=== PATIENT | female | born 1990 | race African-American/Black ===

== ENCOUNTER 2017-01-03 14:37 | Inpatient (IN) ==
[2017-01-03] MEDS ORDERED: ONDANSETRON 4 MG/2 ML VIAL IV PRN (15:01)
[2017-01-03] MEDS ORDERED: FAMOTIDINE 20 MG/2 ML VIAL IV ONE (15:03)
[2017-01-03] MEDS ORDERED: hydrOXYzine HCL 25 MG/1 ML VIAL IM PRN (15:03)
[2017-01-03] MEDS ORDERED: LACTATED RINGERS 1,000 ML IV ONE (15:03)
[2017-01-03] MEDS ORDERED: fentaNYL 2 MCG/ROPIV 0.2% EPID 150 ML EPIDURAL SCH (15:03)
[2017-01-03] MEDS ORDERED: diphenhydrAMINE 50 MG/1 ML VIAL IV PRN ×2 (15:03)
[2017-01-03] MEDS ORDERED: ONDANSETRON 4 MG/2 ML VIAL IV ONE (15:03)
[2017-01-03] MEDS ORDERED: ePHEDrine 50 MG/ML AMP IV PRN (15:03)
[2017-01-03] MEDS ORDERED: CITRIC ACID/SODIUM CITRATE 30 ML UDCUP PO ONE (15:03)
[2017-01-03] MEDS ORDERED: PROMETHAZINE 25 MG/1 ML VIAL IM ONE (15:03)
[2017-01-03] MEDS ORDERED: AMPICILLIN INJ 2,000 MG in SODIUM CHLORIDE 0.9% 100 ML IV ONE (15:08)
[2017-01-03] MEDS: LACTATED RINGERS 1,000 ML IV SCH ×2 (15:33→23:30)
[2017-01-03 15:45] LABS: Basophils % 0.1 % (0.0-0.8); Eosinophils # 0.1 10*3/uL (0.0-0.87); Hematocrit 32.6 VOL% (35.7-47.0); Hemoglobin 10.9 GM/DL (12.0-16.0); Immature Granulocytes % 0.7 %; Immature Granulocytes Absolute 0.08 #; Lymphocytes # 1.8 10*3/uL (1.4-4.0); Lymphocytes % 14.3 % (21.3-54.2); Mean Corpuscular HGB Conc 33.4 GM/DL (32-36); Mean Corpuscular Hemoglobin 32 PG (27-34); Mean Corpuscular Volume 94.2 FL (87-102); Mean Platelet Volume 10.8 FL (9.6-12.0); Monocytes # 1.2 10*3/uL (0.11-0.8); Monocytes % 9.9 % (1.7-12.7); Neutrophils # 9.1 10*3/uL (1.4-7.4); Platelet Count 330 T/CUMM (130-400); Red Blood Count 3.46 MC/CUMM (3.8-5.5); Red Cell Distribution Width 13.6 % (9.3-17.3); White Blood Count 12.2 T/CUMM (4-12)
[2017-01-03 16:15] LABS: Albumin 3.4 G/DL (3.4-5.0); Bilirubin,Total 0.6 MG/DL (0.2-1.0); Calcium 9.2 MG/DL (8.5-10.1); Osmolality,Calculated 269.8 MOS/KG (273-304); Total Protein 7.4 G/DL (6.4-8.3); Uric Acid 4.9 MG/DL (2.6-6.0)
[2017-01-03] MEDS: AMPICILLIN INJ 1,000 MG in SODIUM CHLORIDE 0.9% 100 ML IV SCH ×2 (19:15→23:55)
[2017-01-04] MEDS: BUTORPHANOL 2 MG/ML VIAL IV PRN ×2 (00:05→03:30)
[2017-01-04] MEDS: AMPICILLIN INJ 1,000 MG in SODIUM CHLORIDE 0.9% 100 ML IV SCH ×4 (03:30→21:38)
[2017-01-04] MEDS: OXYTOCIN/LR 20 UNIT/1,000 ML BAG IV SCH (07:36)
[2017-01-04] MEDS ORDERED: ePHEDrine 50 MG/ML AMP ONE (07:40)
[2017-01-04] MEDS ORDERED: FAMOTIDINE 20 MG/2 ML VIAL IV ONE (08:00)
[2017-01-04] MEDS ORDERED: CITRIC ACID/SODIUM CITRATE 30 ML UDCUP PO ONE (08:00)
--- NOTE | 2017-01-04 08:28 | OB/GYN History & Physical ---
History of Present Illness Chief complaint: contractions History of present illness: Ms. Shaw is a 26 year old female Was seen in the office yesterday with complaints of painful uterine contractions. Patient was found to be 6 cm dilated with palpable uterine contractions therefore she was sent to labor and delivery for labor Home Medications Medication Instructions Recorded Confirmed Type Pnv No.95/Ferrous Fum/Folic AC 1 tablet PO DAILY 01/03/17 01/03/17 History [ Tablet] Allergies Allergy/AdvReac Type Severity Reaction Status Date / Time No Known Allergies Allergy Verified 01/03/17 14:59 12 point system: reviewed and no additional remarkable complaints except as stated Medical,Surgical,& Family Hx - Medical History HEENT: History of: Dental Problems (wisdom tooth removed) - Family History Family History: Reports;: Family Diabetes (maternal grandmother), Family Hypertension (mother/father) - Social History Smoking Status: Never smoker Frequency of Alcohol Use: None Type of Drug Use: None Exam [employer] - Constitutional Vitals: Vital Signs Temp Pulse Resp BP Pulse Ox 01/04/17 04:00 98 F 95 H 18 123/62 01/04/17 00:00 98.0 F 96 H 18 127/66 01/03/17 20:00 99 H 18 130/59 01/03/17 16:00 98.0 F 95 H 20 123/70 01/03/17 15:10 97.8 F 107 H 20 124/75 100 General appearance: mild distress - Antepartum / Post Antepartum Exam Cervix -Dilatation: 7 cm Effacement: 90% Station: -1 Rupture: Artificial rupture membranes with clear fluid Presentation: Vertex Heart Rate: 150s no decelerations [place]ir[place]: Contractions every 2-4 minutes - Head Head exam: Present: normocephalic - ENT ENT exam: Present: normal exam - Neck Neck exam: Present: normal inspection - Respiratory Respiratory exam: Present: clear to auscultation bilaterally - Cardiovascular Cardiovascular exam: Present: regular rate and rhythm - GI/Abdominal GI/Abdominal exam: Present: normal bowel sounds, soft - Extremities Exam Extremities exam: Present: normal inspection - Back Exam Back exam: Present: normal inspection - Neurological Exam Neurological exam: Present: alert, oriented X3 - Psychiatric Psychiatric exam: Present: normal affect, normal mood - Skin Skin exam: Present: normal color, warm Assessment and Plan (1) 38 weeks gestation of Status: Acute Current Visit: Yes (2) Active labor Status: Acute Assessment and plan: Patient admitted for augmentation of labor with expected vaginal delivery. Patient also with epidural. Current Visit: Yes Results - Labs CBC & BMP: 01/03/17 15:10 01/03/17 15:10
[2017-01-04] MEDS ORDERED: miSOPROStol 200 MCG TABLET ONE (09:34)
[2017-01-04] MEDS ORDERED: DIPH/TET/ACEL PERT BOOSTER VACCINE 0.5 ML VIAL IM ONE (10:04)
[2017-01-04] MEDS ORDERED: BENZOCAINE 20%/MENTHOL 0.5% SPRAY 56 GM CAN TOP PRN (10:04)
[2017-01-04] MEDS ORDERED: ACETAMINOPHEN 325 MG TABLET PO PRN (10:04)
[2017-01-04] MEDS ORDERED: OXYTOCIN/LR 20 UNIT/1,000 ML BAG IV ONE (10:04)
[2017-01-04] MEDS ORDERED: LANOLIN 50% CREAM 0.3 OZ TUBE TOP PRN (10:04)
[2017-01-04] MEDS ORDERED: MEASLES/MUMPS/RUBELLA VACCINE 0.5 ML VIAL SUBCUT ONE (10:04)
[2017-01-04] MEDS ORDERED: HYDROCORTISONE 2.5% RECTAL CREAM 30 GM TUBE TOP PRN (10:04)
[2017-01-04] MEDS ORDERED: BISACODYL 10 MG SUPP RECTAL PRN (10:04)
[2017-01-04] MEDS ORDERED: ONDANSETRON 4 MG/2 ML VIAL IV PRN (10:04)
[2017-01-04] MEDS ORDERED: WITCH HAZEL PADS 100/JAR TOP PRN (10:04)
[2017-01-04] MEDS ORDERED: RHO(D) IMMUNE GLOBULIN 300 MCG SYRINGE IM ONE (10:04)
--- NOTE | 2017-01-04 10:07 | Operative Note ---
Date of procedure: 01/04/17 Pre-op diagnosis: labor at 38 weeks Post-op diagnosis: same Procedure: Over an intact perineum patient delivered a liveborn male via spontaneous vaginal delivery. They's head was delivered in ALFONSO position. Nose and mouth were bulb suctioned at perineum. Anterior posterior shoulders followed by the body were delivered with ease. The specimen maternal abdomen umbilical cord doubly clamped and cut. Cord blood was sent. The placenta was delivered spontaneously and intact with a three-vessel cord. The uterus was normal size was found be firm and well contracted. At the end of procedure all sponge lapcounts correct 2. Baby and mother stable condition. Apgars 9 and 9 Anesthesia: epidural Surgeon / Physician: Prieto Doe Estimated blood loss: other (75 mL) Specimens: none sent Condition: stable Disposition: floor Results - Labs CBC & BMP: 01/03/17 15:10 01/03/17 15:10 Discharge Plan - Discharge Medications No Action Pnv No.95/Ferrous Fum/Folic AC [ Tablet] 1 tablet PO DAILY - Follow Up or Referral - Forms/Instructions
[2017-01-04] MEDS: IBUPROFEN 800 MG TABLET PO PRN ×2 (11:28→18:21)
[2017-01-04] MEDS: oxyCODONE/ACETAMINOPHEN 5-325 MG TABLET PO PRN ×2 (13:00→18:21)
[2017-01-04] MEDS ORDERED: FLUCONAZOLE 150 MG TABLET PO ONE (16:34)
[2017-01-04] MEDS: DOCUSATE SODIUM 100 MG CAPSULE PO SCH (21:30)
[2017-01-04] MEDS: LACTATED RINGERS 1,000 ML IV SCH (21:37)
[2017-01-05] MEDS: AMPICILLIN INJ 1,000 MG in SODIUM CHLORIDE 0.9% 100 ML IV SCH ×3 (02:39→20:18)
[2017-01-05] MEDS: oxyCODONE/ACETAMINOPHEN 5-325 MG TABLET PO PRN ×3 (03:13→20:21)
[2017-01-05] MEDS: IBUPROFEN 800 MG TABLET PO PRN ×3 (03:14→20:21)
[2017-01-05] MEDS: LACTATED RINGERS 1,000 ML IV SCH ×2 (05:42→20:18)
[2017-01-05 07:31] LABS: Basophils % 0.2 % (0.0-0.8); Eosinophils # 0.1 10*3/uL (0.0-0.87); Eosinophils % 1.4 % (0.00-10.9); Hematocrit 27.3 VOL% (35.7-47.0); Immature Granulocytes % 0.5 %; Immature Granulocytes Absolute 0.05 #; Lymphocytes # 2.1 10*3/uL (1.4-4.0); Lymphocytes % 22.6 % (21.3-54.2); Mean Corpuscular HGB Conc 31.5 GM/DL (32-36); Mean Corpuscular Hemoglobin 31 PG (27-34); Mean Corpuscular Volume 99.6 FL (87-102); Mean Platelet Volume 10.2 FL (9.6-12.0); Monocytes # 1.2 10*3/uL (0.11-0.8); Neutrophils # 5.9 10*3/uL (1.4-7.4); Neutrophils % 62.3 % (38.7-73.9); Red Cell Distribution Width 13.6 % (9.3-17.3); White Blood Count 9.4 T/CUMM (4-12)
[2017-01-05 07:37] LABS: Hemoglobin 8.6 GM/DL (12.0-16.0); Platelet Count 217 T/CUMM (130-400); Red Blood Count 2.74 MC/CUMM (3.8-5.5)
[2017-01-05] MEDS: DOCUSATE SODIUM 100 MG CAPSULE PO SCH ×2 (09:00→20:21)
--- NOTE | 2017-01-05 10:24 | Anesthesia ---
Anesthesia Post OP - Post Ansesthetic Evaluation Patient seen in post op: Yes Resp: within normal limits CV: within normal limits Mental: within normal limits Temp: within normal limits [id number]-Sr-[id number]: within normal limits Nausea and Vomiting: within normal limits Pain: within normal limits
--- NOTE | 2017-01-05 12:09 | OB/GYN Progress Note ---
Assessment and Plan (1) 38 weeks gestation of Status: Acute Current Visit: Yes (2) Active labor Status: Acute Assessment and plan: Patient admitted for augmentation of labor with expected vaginal delivery. Patient also with epidural. Current Visit: Yes (3) Vaginal delivery Status: Acute Assessment and plan: Routine care with discharge planning in the a.m. Current Visit: Yes MATERIAL DISTRIBUTOR - PN: Subj Interval history: no complaint Exam MATERIAL DISTRIBUTOR - Constitutional Vitals: Vital Signs Temp Pulse Resp BP Pulse Ox 01/05/17 07:33 98.6 F 87 18 106/60 97 01/05/17 04:00 98.2 F 94 H 18 139/70 98 01/05/17 00:00 97.3 F L 86 18 98/49 100 01/04/17 20:00 98 F 94 H 18 117/67 99 01/04/17 15:54 97.4 F L 106 H 20 127/65 98 01/04/17 15:48 97.4 F L 106 H 20 127/65 98 01/04/17 14:35 107 H 20 142/75 98 01/04/17 13:35 108 H 20 124/71 98 01/04/17 12:35 97.6 F 114 H 18 115/76 100 General appearance: no acute distress - Antepartum / Post Post Exam Abdomen obstetrics: Present: bowel sounds normal Vagina: Present: normal moisture Uterus exam: Present: normal size, normal contour Anus/Rectum: Present: normal perianal skin - Head Head exam: Present: normocephalic - ENT ENT exam: Present: normal exam - Respiratory Respiratory exam: Present: clear to auscultation bilaterally - Cardiovascular Cardiovascular exam: Present: regular rate and rhythm - Extremities Exam Extremities exam: Present: normal inspection - Neurological Exam Neurological exam: Present: alert, oriented X3 - Psychiatric Psychiatric exam: Present: normal affect, normal mood Results - Labs CBC & BMP: 01/05/17 07:17 01/03/17 15:10
[2017-01-06] MEDS: OXYTOCIN/LR 20 UNIT/1,000 ML BAG IV SCH (00:57)
[2017-01-06] MEDS: LACTATED RINGERS 1,000 ML IV SCH (00:57)
[2017-01-06] MEDS: AMPICILLIN INJ 1,000 MG in SODIUM CHLORIDE 0.9% 100 ML IV SCH ×2 (00:57→04:46)
[2017-01-06 07:25] VITALS: BP 111/59
--- NOTE | 2017-01-06 08:16 | Discharge Summary ---
Hospital Course - Hospital Course Hospital Course: This is a 26-year-old admitted secondary to labor at 38 weeks. She subsequently delivered a liveborn male via spontaneous vaginal delivery. Hospital course unremarkable day #2 she was eager for discharge. Patient requesting Depo-Provera for contraception. Diagnosis - Discharge Diagnosis (1) 38 weeks gestation of Status: Acute (2) Active labor Status: Acute (3) Vaginal delivery Status: Acute Discharge Plan - Discharge Data Disposition: Disch To Home/Self Care Condition at Discharge: Stable Discharge Diet: advance to your usual diet Activity: resume usual activities as tolerated (Pelvic rest) Hygiene: no restrictions Weight Bearing at Discharge: weight bear as tolerated Driving: no restrictions Contact your physician if you experience:: fever over 101, Difficulty voiding, Redness or swelling, Nausea/Vomiting, Shortness of breath, Bleeding, pain uncontrolled by pain medications - Discharge Medications New Ibuprofen Tab [Motrin Tab] 800 mg PO Q6H PRN #40 tablet PRN Reason: Pain Moderate (4-7) No Action Pnv No.95/Ferrous Fum/Folic AC [ Tablet] 1 tablet PO DAILY - Follow Up or Referral Follow Up: Prieto Doe MD [Physician] - 1 Month - Forms/Instructions Exam - Constitutional Vitals: Period Temp Pulse Resp BP Sys/Miranda Pulse Ox Last 24 Hr 97.7 F-99 F 84-93 18-20 111-129/59-82 97-99 General appearance: no acute distress - Head Head exam: Present: normocephalic - Neck Neck exam: Present: normal inspection - Respiratory Respiratory exam: Present: clear to auscultation bilaterally - Cardiovascular Cardiovascular exam: Present: regular rate and rhythm - GI/Abdominal GI/Abdominal exam: Present: normal bowel sounds, soft, other (Uterus firm and well contracted the level of the umbilicus) - Extremities Exam Extremities exam: Present: normal inspection - Back Exam Back exam: Present: normal inspection - Neurological Exam Neurological exam: Present: alert, oriented X3 - Psychiatric Psychiatric exam: Present: normal affect, normal mood - Skin Skin exam: Present: normal color, warm Discharge Results Procedures and tests throughout hospitalization: Pending Orders 01/03/17 15:01 Urinalysis Routine DS: Provider Date of admission: 01/03/17 15:01 Primary care physician: . No PCP Attending physician on admission: Prieto Doe MD Consults: 01/03/17 15:01 Consult to Anesthesiology [CONS] Routine Consulting Provider: Reason for Anesthesiology: Epidural Consult Comment: Epidural for pain managment 01/04/17 10:04 Consult to Help Desk Internship [CONS] Routine Consult Help Desk Internship: Breast Feeding Discharging clinician: Prieto Doe MD
[2017-01-06] MEDS: IBUPROFEN 800 MG TABLET PO PRN (09:35)
[2017-01-06] MEDS: DOCUSATE SODIUM 100 MG CAPSULE PO SCH (09:50)
== END 2017-01-06 13:10 | disposition home or self-care (01) | DRG 775 ==
LOC: N.LDOUT 14:37 → N.LD 14:40 → N.OB 01-04 12:36
PROVIDERS: ADMIT Obstetrics & Gynecology; ATTEND Obstetrics & Gynecology